=== PATIENT | female | born 1945 | race Caucasian/White ===

== ENCOUNTER 2017-06-08 13:29 | Observation (INO) | payer MEDICARE ==
[~2017-06-08] VITALS: Ht 160 cm; Wt 75.0 kg
[2017-06-08 13:32] VITALS: BP 134/65; PULSE 100; RESP 16; TEMP 98; O2SAT 96
--- NOTE | 2017-06-08 14:23 | RADRPT ---
EXAM DATE/TIME: 06/08/2017 14:04 [facility] COMPARISON: No previous studies available for comparison. INDICATIONS : Weakness, dizziness, unsteady gait, tired, since multiple botox injections last week. MEDICAL HISTORY : None. SURGICAL HISTORY : Multiple botox injections ENCOUNTER: Initial ACUITY: 1 week PAIN SCORE: 0/10 LOCATION: Bilateral chest FINDINGS: A single view of the chest demonstrates the lungs to be symmetrically aerated without evidence of mas s, infiltrate or effusion. Moderate size hiatal hernia. The cardiomediastinal contours are unremarka ble. Osseous structures are intact. CONCLUSION: No acute disease. Hiatal hernia. Ramu Pearson MD on June 08, 2017 at 14:20 Board Certified Radiologist. This report was verified electronically.
--- NOTE | 2017-06-08 14:43 | RADRPT ---
EXAM DATE/TIME: 06/08/2017 14:05 [facility] COMPARISON: No previous studies available for comparison. INDICATIONS : Lethargic,right side weakness,unsteady gait for two weeks. RADIATION DOSE: 31.15 CTDIvol (mGy) MEDICAL HISTORY : None SURGICAL HISTORY : None. ENCOUNTER: Initial ACUITY: 2 weeks PAIN SCALE: 3/10 LOCATION: cranial TECHNIQUE: Multiple contiguous axial images were obtained of the head. Using automated exposure control and adj ustment of the mA and/or kV according to patient size, radiation dose was kept as low as reasonably a chievable to obtain optimal diagnostic quality images. DICOM format image data is available electro nically for review and comparison. FINDINGS: CEREBRUM: Lacunar infarct right caudate head and periventricular white matter changes. The ventricles are john l for age. Old left basal ganglia lacunar infarct. No evidence of midline shift, mass lesion, hemorrh age or acute infarction. No extra-axial fluid collections are seen. POSTERIOR FOSSA: The cerebellum and brainstem are intact. The 4th ventricle is midline. The cerebellopontine angle i s unremarkable. EXTRACRANIAL: The visualized portion of the orbits is intact. SKULL: The calvaria is intact. No evidence of skull fracture. CONCLUSION: 1. Old appearing bilateral basal ganglia lacunar infarcts, although the left basal ganglia lacunar in farct could be subacute. If concern for acute infarct and MRI may be warranted. 2. Nonspecific white matter changes. Ramu Pearson MD on June 08, 2017 at 14:36 Board Certified Radiologist. This report was verified electronically.
--- NOTE | 2017-06-08 15:11 | PD ---
HPI Chief Complaint: General Weakness Time Seen by Provider: 15:10 Travel History International Travel<30 days: No Contact w/Intl Traveler<30days: No Traveled to known affect area: No Allergies-Medications (Allergen,Severity, Reaction): Coded Allergies: No Known Allergies (Unverified , 06/08/17) Data Data Last Documented VS Vital Signs Date Time Temp Pulse Resp B/P (MAP) Pulse Ox O2 Delivery O2 Flow Rate FiO2 06/08/17 13:32 98.0 100 16 134/65 (88) 96 Orders Orders Electrocardiogram (06/08/17 13:45) Complete Blood Count With Diff (06/08/17 13:45) Comprehensive Metabolic Panel (06/08/17 13:45) Magnesium (Mg) (06/08/17 13:45) B-Type Natriuretic Peptide (06/08/17 13:45) Ckmb (Isoenzyme) Profile (06/08/17 13:45) Troponin I (06/08/17 13:45) Act Partial Throm Time (Ptt) (06/08/17 13:45) Prothrombin Time / Inr (Pt) (06/08/17 13:45) Urinalysis - C+S If Indicated (06/08/17 13:45) Chest, Single Ap (06/08/17 13:45) Ct Brain W/O Iv Contrast(Rout) (06/08/17 13:45) Reilly Zavaleta MD Jun 08, 2017 15:11
[2017-06-08 15:32] VITALS: BP 177/73; PULSE 83; RESP 15; O2SAT 97
--- NOTE | 2017-06-08 15:53 | PD ---
HPI Chief Complaint: General Weakness Time Seen by Provider: 15:47 Travel History International Travel<30 days: No Contact w/Intl Traveler<30days: No Traveled to known affect area: No History of Present Illness HPI 72-year-old female that presents to the ED for evaluation of multiple complaints. Per patient and family member the main concern is the patient has been more lethargic than usual. She is sleeping longer which is unusual for her. She's also been having confusion and episodes of slurred speech with no obvious etiology. She does have a significant history of dystonia and gets Botox injections. She last had one about a month ago and symptoms started 2 weeks afterwards. She's never had similar symptoms like this before. Per the confusion and the dysarthria is more significant than before and when asked if she ever had this before he states that he does not appear to be so. She has been weak before but not like this. She does state that she takes blood thinners. She has a history of high blood pressure. She denies any history of CVA or ACS on herself. She states compliant with her medications. She states that she is from out of town and is visiting here for the next couple of weeks. She has no PCP in the area. She denies any pain. Her dystonia usually affects her face as well as her right arm. Per the weakness and lethargy appears to have worsened to the point where she follows sleeping when she is eating. No recent injury or head injury. [facility] Social History Alcohol Use: No Tobacco Use: No Substance Use: No Allergies-Medications (Allergen,Severity, Reaction): Coded Allergies: No Known Allergies (Unverified , 06/08/17) Reported Meds & Prescriptions Reported Meds & Active Scripts Active Reported Primidone 50 Mg Tab 300 Mg PO DAILY IN THE PM Omeprazole 20 Mg Tab 20 Mg PO BID Effexor (Venlafaxine HCl) 75 Mg Tab 75 Mg PO TID Klonopin (Clonazepam) 1 Mg Tab 1 Mg PO HS Wellbutrin Xl 24 HR (Bupropion HCl) 150 Mg Tab 150 Mg PO DAILY Baclofen 10 Mg Tab 10 Mg PO Q8HR [Easy Fe 200MG] 200 Mg PO DAILY Vesicare (Solifenacin) 10 Mg Tab 10 Mg PO DAILY Cipro (Ciprofloxacin HCl) 500 Mg Tab 500 Mg PO BID 5 Days Review of Systems Except as stated in HPI: all other systems reviewed are Neg Physical Exam Narrative GENERAL: SKIN: Warm and dry. HEAD: Atraumatic. Normocephalic. EYES: Pupils equal and round 4 mm reactive to light and accomodation. No scleral icterus. No injection or drainage. EOM intact bilaterally. ENT: No nasal bleeding or discharge. Mucous membranes pink and moist. Tongue is midline. No uvula deviation. NECK: Trachea midline. No JVD. CARDIOVASCULAR: Regular rate and rhythm. No murmurs, S3, S4. RESPIRATORY: No accessory muscle use. Clear to auscultation. Breath sounds equal bilaterally. GASTROINTESTINAL: Abdomen soft, non-tender, nondistended. Hepatic and splenic margins not palpable. MUSCULOSKELETAL: Extremities without clubbing, cyanosis, or edema. No obvious deformities. Full range of motion of the upper and lower extremities bilaterally. 2+ pulses bilaterally. NEUROLOGICAL: Awake and alert. No obvious cranial nerve deficits. Motor grossly within normal limits. Five out of 5 muscle strength in the arms and legs. Normal speech. Patient has an obvious tremor to the right hand as well as to the face that is chronic. PSYCHIATRIC: Appropriate mood and affect; insight and judgment normal. Data Data Last Documented VS Vital Signs Date Time Temp Pulse Resp B/P (MAP) Pulse Ox O2 Delivery O2 Flow Rate FiO2 06/08/17 15:32 83 15 177/73 (107) 97 Room Air 06/08/17 13:32 98.0 Orders Orders Complete Blood Count With Diff (06/08/17 13:45) Comprehensive Metabolic Panel (06/08/17 13:45) Magnesium (Mg) (06/08/17 13:45) B-Type Natriuretic Peptide (06/08/17 13:45) Ckmb (Isoenzyme) Profile (06/08/17 13:45) Troponin I (06/08/17 13:45) Act Partial Throm Time (Ptt) (06/08/17 13:45) Prothrombin Time / Inr (Pt) (06/08/17 13:45) Urinalysis - C+S If Indicated (06/08/17 13:45) Chest, Single Ap (06/08/17 13:45) Ct Brain W/O Iv Contrast(Rout) (06/08/17 13:45) Mri Brain W/O Contrast (06/08/17 ) Admit Order (Ed Use Only) (06/08/17 17:05) Labs Laboratory Tests Test 06/08/17 15:40 White Blood Count 7.5 TH/MM3 Red Blood Count 3.99 MIL/MM3 Hemoglobin 12.2 GM/DL Hematocrit 36.7 % Mean Corpuscular Volume 92.0 FL Mean Corpuscular Hemoglobin 30.6 PG Mean Corpuscular Hemoglobin Concent 33.3 % Red Cell Distribution Width 15.3 % Platelet Count 232 TH/MM3 Mean Platelet Volume 7.8 FL Neutrophils (%) (Auto) 68.4 % Lymphocytes (%) (Auto) 23.2 % Monocytes (%) (Auto) 6.9 % Eosinophils (%) (Auto) 1.2 % Basophils (%) (Auto) 0.3 % Neutrophils # (Auto) 5.1 TH/MM3 Lymphocytes # (Auto) 1.7 TH/MM3 Monocytes # (Auto) 0.5 TH/MM3 Eosinophils # (Auto) 0.1 TH/MM3 Basophils # (Auto) 0.0 TH/MM3 CBC Comment DIFF FINAL Differential Comment Prothrombin Time 10.0 SEC Prothromb Time International Ratio 0.9 RATIO Activated Partial Thromboplast Time 24.5 SEC Blood Urea Nitrogen 6 MG/DL Creatinine 0.66 MG/DL Random Glucose 105 MG/DL Total Protein 7.1 GM/DL Albumin 3.8 GM/DL Calcium Level 8.6 MG/DL Magnesium Level 2.2 MG/DL Alkaline Phosphatase 91 U/L Aspartate Amino Transf (AST/SGOT) 20 U/L Alanine Aminotransferase (ALT/SGPT) 17 U/L Total Bilirubin 0.3 MG/DL Sodium Level 136 MEQ/L Potassium Level 3.3 MEQ/L Chloride Level 98 MEQ/L Carbon Dioxide Level 28.8 MEQ/L Anion Gap 9 MEQ/L Estimat Glomerular Filtration Rate 88 ML/MIN Total Creatine Kinase 71 U/L Troponin I LESS THAN 0.02 NG/ML MDM Medical Decision Making Medical Screen Exam Complete: Yes Emergency Medical Condition: Yes Medical Record Reviewed: Yes Interpretation(s) CBC & BMP Diagram 06/08/17 15:40 Total Protein 7.1, Albumin 3.8, Calcium Level 8.6, Magnesium Level 2.2, Alkaline Phosphatase 91, Aspartate Amino Transf (AST/SGOT) 20, Alanine Aminotransferase (ALT/SGPT) 17, Total Bilirubin 0.[address] 06/08/17 8745 Signed Impressions: Service Date/Time: Thursday, June 08, 2017 14:05 - CONCLUSION: 1. Old appearing bilateral basal ganglia lacunar infarcts, although the left basal ganglia lacunar infarct could be subacute. If concern for acute infarct and MRI may be warranted. 2. Nonspecific white matter changes. Ramu Pearson MD Chest X-Ray 06/08/17 1345 Signed Impressions: Service Date/Time: Thursday, June 08, 2017 14:04 - CONCLUSION: No acute disease. Hiatal hernia. Ramu Pearson MD Differential Diagnosis TIA versus CVA versus dystonia versus weakness versus tremor versus UTI versus sepsis Narrative Course 72-year-old female that presents to the ED for evaluation of dysarthria, confusion, weakness for 2 weeks. Patient was properly examined and was found to have signs and symptoms concerning for possible TIA versus CVA. CT and chest x-ray were ordered intravenously is and CT show possible subacute lacunar infarct. This was discussed in my attending who agrees with plan. As patient has had symptoms for 2 weeks before likely this is subacute. We'll wait for labs as well as MRI was ordered. Patient will be admitted to the medical team for further evaluation per my attending Dr. Zavaleta. Labs were essentially unremarkable. Case discussed with Dr. Gimenez who agrees to admission. Diagnosis Primary Impression: CVA (cerebral vascular accident) Qualified Codes: I63.9 - Cerebral infarction, unspecified Admitting Information Admitting Physician Requests: Phil Helton Jun 08, 2017 15:53
[2017-06-08] MEDS ORDERED: CIPR-9 PO (16:24)
[2017-06-08] MEDS ORDERED: VENL75TA PO (16:24)
[2017-06-08] MEDS ORDERED: PRIM50TA5 PO (16:24)
[2017-06-08] MEDS ORDERED: VESI10TA2 PO (16:24)
[2017-06-08] MEDS ORDERED: CLON1 PO (16:24)
[2017-06-08] MEDS ORDERED: BUPR150XL PO (16:24)
[2017-06-08] MEDS ORDERED: OMEP20TA93 PO (16:24)
[2017-06-08] MEDS ORDERED: [UNRECOGNIZED DRUG - OTHER] PO (16:24)
[2017-06-08] MEDS ORDERED: BACL10TA PO (16:24)
[2017-06-08 16:27] LABS: AUTOMATED NEUTROPHIL # 5.1 TH/MM3 (1.8-7.7); BASOPHIL % 0.3 % (0.0-2.0); EOSINOPHIL # 0.1 TH/MM3 (0-0.4); EOSINOPHIL % 1.2 % (0.0-4.0); HEMATOCRIT 36.7 % (35.0-46.0); HEMO FLAGS DIFF FINAL; LYMPH % 23.2 % (9.0-44.0); LYMPHOCYTE # 1.7 TH/MM3 (1.0-4.8); MEAN CORPUSCULAR HEMOGLOBIN 30.6 PG (27.0-34.0); MEAN CORPUSCULAR HGB CONC 33.3 % (32.0-36.0); MONO % 6.9 % (0.0-8.0); NEUT % 68.4 % (16.0-70.0); PLATELET COUNT 232 TH/MM3 (150-450); RED BLOOD COUNT 3.99 MIL/MM3 (4.00-5.30); RED CELL DISTRIBUTION WIDTH 15.3 % (11.6-17.2); WHITE BLOOD COUNT 7.5 TH/MM3 (4.0-11.0)
[2017-06-08 16:40] LABS: APTT (PATIENT) 24.5 SEC (24.3-30.1); INTERNATIONAL NORMALIZED RATIO 0.9 RATIO
[2017-06-08 16:45] LABS: ANION GAP 9 MEQ/L (5-15); AST (GOT) 20 U/L (15-37); BICARBONATE 28.8 MEQ/L (21.0-32.0); BLOOD UREA NITROGEN 6 MG/DL (7-18); CHLORIDE 98 MEQ/L (98-107); GLOMERULAR FILTRATION RATE 88 ML/MIN (>89); MAGNESIUM 2.2 MG/DL (1.5-2.5); POTASSIUM 3.3 MEQ/L (3.5-5.1); SODIUM (NA) 136 MEQ/L (136-145)
[2017-06-08 16:47] LABS: ALT (GPT) 17 U/L (10-53)
[2017-06-08 16:51] LABS: ALKALINE PHOSPHATASE 91 U/L (45-117); TOTAL BILIRUBIN ADULT 0.3 MG/DL (0.2-1.0)
[2017-06-08 16:55] LABS: CREATINE KINASE 71 U/L (26-192)
[2017-06-08] MEDS ORDERED: DEXTROSE 50% IN WATER 50 ML VIAL(D50) IV PUSH PRN (17:15)
[2017-06-08] MEDS ORDERED: SODIUM CHLORIDE 0.9% FLUSH 10 ML FLUSH IV FLUSH PRN (17:15)
[2017-06-08] MEDS ORDERED: GLUCAGON 1 MG/ML VIAL OTHER PRN (17:15)
--- NOTE | 2017-06-08 17:54 | RADRPT ---
EXAM DATE/TIME: 06/08/2017 17:14 [facility] COMPARISON: CT BRAIN W/O CONTRAST, June 08, 2017, 14:05. INDICATIONS : Stroke. MEDICAL HISTORY : None. SURGICAL HISTORY : Tonsillectomy. Hip replacement. ENCOUNTER: Subsequent ACUITY: 2 weeks PAIN SCORE: 3/10 LOCATION: cranial TECHNIQUE: Multiplanar, multisequence MRI of the brain was performed without contrast. FINDINGS: CEREBRUM: The ventricles are normal for age. Old lacunar type infarct in the anterior right ma radiata. Po ssible punctate lacunar type infarct versus prominent perivascular space in the left basal ganglia. N o evidence of midline shift, mass lesion, hemorrhage or acute infarction. No extraaxial fluid collec tions are seen. The pituitary gland and suprasellar cistern are normal in configuration. WHITE MATTER: Minimal periventricular small vessel ischemic demyelination. POSTERIOR FOSSA: The cerebellum and brainstem are intact. The 4th ventricle is midline. The cerebellopontine angle is unremarkable. The cerebellar tonsils are normal in position. DIFFUSION IMAGING: No focal areas of restricted diffusion are seen. No evidence of acute infarction. EXTRACRANIAL: The visualized portions of the orbits and paranasal sinuses are unremarkable. CONCLUSION: 1. Old lacunar type infarct in the anterior right ma radiata with possible punctate lacunar type infarct versus perivascular space in the left basal ganglia. 2. Minimal periventricular small vessel ischemic demyelination. 3. Nothing acute. Too Villarreal MD on June 08, 2017 at 17:48 Board Certified Radiologist. This report was verified electronically.
[2017-06-08 18:51] VITALS: BP 124/88; PULSE 74; RESP 22; TEMP 98.3; O2SAT 98
--- NOTE | 2017-06-08 19:41 | HHI.HP ---
[facility] Unknown Admission Diagnosis subactue CVA, aphasia Diagnoses: Travel History International Travel<30 Days: No Contact w/Intl Traveler <30 Da: No Traveled to Known Affected Are: No History of Present Illness 72-year-old female with a past medical history significant for dystonia for which she receives Botox injections, essential tremor, hypertension, hyperlipidemia and obstructive sleep apnea presents to the emergency department with a 3-4 week history of progressive weakness and fatigue with accompanying slurred speech and confusion that waxes and wanes. Per the patient's , the patient's speech has been abnormal and progressively worsening. She also is intermittently confused and does not remember recent conversations. These are all new symptoms for her. Additionally, the patient has been extremely fatigued not wanting to leave her chair during the day. She is normally a very active person. The patient's states that he is afraid to let her drive because of her confusion and weakness. CT of the head showed possible subacute left basal ganglia lacunar infarct. MRI was significant for an old lacunar infarct. Lab values remarkable only for a potassium of 3.3. Remainder of CBC/ CMP within normal limits.. Patient complains of a headache at this time. Denies chest pain/shortness of breath. The patient and her are visiting from [place]. She has no history of a CVA/TIA. Of note, the patient states that she has a history of atrial fibrillation and states she takes a combined anticoagulant medication. She is unclear of the name of this medication and it does not appear on her medication reconciliation. Review of Systems Denies fever or chills Denies blurry vision, otorrhea, rhinorrhea Denies sore throat and cough No chest pain, palpitations, shortness of breath No abdominal pain Denies constipation/diarrhea/nausea/vomiting Positive slurred speech/weakness/fatigue No rashes Past Family Social History Past Medical History Dystonia Obstructive sleep apnea Hyperlipidemia Hypertension Essential tremor Atrial fibrillation Past Surgical History Bilateral hip replacement Hysterectomy Tonsillectomy Reported Medications Reported Meds & Active Scripts Active Reported Primidone 50 Mg Tab 300 Mg PO DAILY IN THE PM Omeprazole 20 Mg Tab 20 Mg PO BID Effexor (Venlafaxine HCl) 75 Mg Tab 75 Mg PO TID Klonopin (Clonazepam) 1 Mg Tab 1 Mg PO HS Wellbutrin Xl 24 HR (Bupropion HCl) 150 Mg Tab 150 Mg PO DAILY Baclofen 10 Mg Tab 10 Mg PO Q8HR [Easy Fe 200MG] 200 Mg PO DAILY Vesicare (Solifenacin) 10 Mg Tab 10 Mg PO DAILY Cipro (Ciprofloxacin HCl) 500 Mg Tab 500 Mg PO BID 5 Days Allergies: Coded Allergies: No Known Allergies (Unverified , 06/08/17) Family History Father of an MT at age 80. Mother with Alzheimer's. Social History Denies tobacco, alcohol and illicit drugs. Physical Exam Vital Signs Vital Signs Date Time Temp Pulse Resp B/P (MAP) Pulse Ox O2 Delivery O2 Flow Rate FiO2 06/08/17 18:51 98.3 74 22 124/88 (100) 98 06/08/17 17:48 06/08/17 15:32 83 15 177/73 (107) 97 Room Air 06/08/17 13:32 98.0 100 16 134/65 (88) 96 Physical Exam GENERAL: female lying in bed SKIN: No rashes, ecchymoses or lesions. Cool and dry. HEAD: Atraumatic. Normocephalic. No temporal or scalp tenderness. EYES: Pupils equal round and reactive. Extraocular motions intact. No scleral icterus. No injection or drainage. ENT: Nose without bleeding, purulent drainage or septal hematoma. Throat without erythema, tonsillar hypertrophy or exudate. Uvula midline. Airway patent. NECK: Trachea midline. No JVD or lymphadenopathy. Supple, nontender, no meningeal signs. CARDIOVASCULAR: Regular rate and rhythm without murmurs, gallops, or rubs. RESPIRATORY: Clear to auscultation. Breath sounds equal bilaterally. No wheezes , rales, or rhonchi. GASTROINTESTINAL: Abdomen soft, non-tender, nondistended. No hepato-splenomegaly , or palpable masses. No guarding. MUSCULOSKELETAL: Extremities without clubbing, cyanosis, or edema. No joint tenderness, effusion, or edema noted. NEUROLOGICAL: Awake and alert. Cranial nerves II through XII intact. Right film painter strength 3-/5. Weak smile although patient states this is secondary to her Botox injections. Mildly slurred speech. No dysarthria. Remainder of strength 5/5 throughout. Laboratory Laboratory Tests Test 06/08/17 15:40 White Blood Count 7.5 Red Blood Count 3.99 Hemoglobin 12.2 Hematocrit 36.7 Mean Corpuscular Volume 92.0 Mean Corpuscular Hemoglobin 30.6 Mean Corpuscular Hemoglobin Concent 33.3 Red Cell Distribution Width 15.3 Platelet Count 232 Mean Platelet Volume 7.8 Neutrophils (%) (Auto) 68.4 Lymphocytes (%) (Auto) 23.2 Monocytes (%) (Auto) 6.9 Eosinophils (%) (Auto) 1.2 Basophils (%) (Auto) 0.3 Neutrophils # (Auto) 5.1 Lymphocytes # (Auto) 1.7 Monocytes # (Auto) 0.5 Eosinophils # (Auto) 0.1 Basophils # (Auto) 0.0 CBC Comment DIFF FINAL Differential Comment Prothrombin Time 10.0 Prothromb Time International Ratio 0.9 Activated Partial Thromboplast Time 24.5 Blood Urea Nitrogen 6 Creatinine 0.66 Random Glucose 105 Total Protein 7.1 Albumin 3.8 Calcium Level 8.6 Magnesium Level 2.2 Alkaline Phosphatase 91 Aspartate Amino Transf (AST/SGOT) 20 Alanine Aminotransferase (ALT/SGPT) 17 Total Bilirubin 0.3 Sodium Level 136 Potassium Level 3.3 Chloride Level 98 Carbon Dioxide Level 28.8 Anion Gap 9 Estimat Glomerular Filtration Rate 88 Total Creatine Kinase 71 Troponin I LESS THAN 0.02 Result Diagram: 06/08/17 1540 06/08/17 1540 Caprini VTE Risk Assessment Caprini VTE Risk Assessment: Mod/High Risk (score >= 2) Caprini Risk Assessment Model Point Value = 1 Point Value = 2 Point Value = 3 Point Value = 5 Age 41-60 Minor surgery BMI > 25 kg/m2 Swollen legs Varicose veins or History of unexplained or recurrent spontaneous Oral contraceptives or hormone replacement Sepsis (< 1 month) Serious lung disease, including pneumonia (< 1 month) Abnormal pulmonary function Acute myocardial infarction Congestive heart failure (< 1 month) History of inflammatory bowel disease Medical patient at bed rest Age 61-74 Arthroscopic surgery Major open surgery (> 45 min) Laparoscopic surgery (> 45 min) Malignancy Confined to bed (> 72 hours) Immobilizing plaster cast Central venous access Age >= 75 History of VTE Family history of VTE Factor V Leiden Prothrombin [id number] Lupus anticoagulant Anticardiolipin antibodies Elevated serum homocysteine Heparin-induced thrombocytopenia Other congenital or acquired thrombophilia Stroke (< 1 month) Elective arthroplasty Hip, pelvis, or leg fracture Acute spinal cord injury (< 1 month) Prophylaxis Regimen Total Risk Factor Score Risk Level Prophylaxis Regimen 0-1 Low Early ambulation 2 Moderate Order ONE of the following: *Sequential Compression Device (SCD) *Heparin 5000 units SQ BID 3-4 Higher Order ONE of the following medications: *Heparin 5000 units SQ TID *Enoxaparin/Lovenox 40 mg SQ daily (WT < 150 kg, CrCl > 30 mL/min) *Enoxaparin/Lovenox 30 mg SQ daily (WT < 150 kg, CrCl > 10-29 mL/min) *Enoxaparin/Lovenox 30 mg SQ BID (WT < 150 kg, CrCl > 30 mL/min) AND/OR *Sequential Compression Device (SCD) 5 or more Highest Order ONE of the following medications: *Heparin 5000 units SQ TID (Preferred with Epidurals) *Enoxaparin/Lovenox 40 mg SQ daily (WT < 150 kg, CrCl > 30 mL/min) *Enoxaparin/Lovenox 30 mg SQ daily (WT < 150 kg, CrCl > 10-29 mL/min) *Enoxaparin/Lovenox 30 mg SQ BID (WT < 150 kg, CrCl > 30 mL/min) AND *Sequential Compression Device (SCD) Assessment and Plan Assessment and Plan 72-year-old female with a past medical history significant for dystonia, hyperlipidemia, hypertension and essential tremor presents to the emergency department with a 3-4 week history of increasing fatigue/weakness, progressively worsening slurred speech and intermittent confusion. MRI of the brain significant for old lacunar infarct in the anterior right ma radiata. 1. CVA/TIA Complete neurology workup pending as patient remains symptomatic Neurology consulted, appreciate assistance Carotid ultrasound, echo, lipid profile and A1c pending Physical therapy 2. Dystonia Patient completed Botox injections approximately one month ago with good response 3. Essential tremor Continue home primidone 4. Per patient, past medical history significant for hypertension, hyperlipidemia and A. fib Permissive hypertension Patient is not on any anti-hypertensives or cholesterol medication per her medication reconciliation She is unclear if her medications are correct because she did not bring them with her Patient states she is on a combined blood thinner medication however does not remember the name Patient's is going to bring in her medications for further medication reconciliation FEN Nothing by mouth Gentle hydration with IV fluids Electrolytes within normal limits; continue to monitor and replete when necessary Heparin Gladis Guzman MD Jun 08, 2017 19:41
[2017-06-08 20:40] VITALS: BP 128/60; PULSE 75; RESP 18; TEMP 98.1; O2SAT 98
--- NOTE | 2017-06-08 20:54 | RADRPT ---
EXAM DATE/TIME: 06/08/2017 19:01 [facility] COMPARISON: No previous studies available for comparison. INDICATIONS : Cerebrovascular accident. MEDICAL HISTORY : Stroke. Hypercholesterolemia. Dystonia. Sleep apnea. Depression. SURGICAL HISTORY : Tonsillectomy. Hysterectomy. Bilateral hip replacement. ENCOUNTER: Initial ACUITY: 1 day PAIN SCORE: 2/10 LOCATION: Bilateral neck PEAK SYSTOLIC VELOCITIES (cm/sec): ICA/CCA RATIO: Right: 1.4 Left: 1.0 ICA: Right: 112.8 Left: 90.1 CCA: Right: 78.9 Left: 92.5 ECA: Right: 90.2 Left: 88.6 VERTEBRAL: Right: 53.7 antegrade Left: 40.6 antegrade Elevated flow velocities and ICA/CCA ratios have been found to correlate with increased degrees of vessel stenosis, calculated as percentage of diameter relative to a normal segment of distal ICA/CCA FINDINGS: RIGHT CAROTID: No significant stenosis is visualized. There is minimal atherosclerotic disease in the carotid bulb. The waveforms are within normal limits. LEFT CAROTID: No significant stenosis is visualized. There is minimal atherosclerotic disease in the carotid bulb. The waveforms are within normal limits. VERTEBRAL ARTERIES: Antegrade flow is seen in both vertebral arteries. MISCELLANEOUS: None. CONCLUSION: 1. Minimal atherosclerotic disease bilaterally. No significant stenosis is identified within either i nternal carotid artery (less than 50% stenosis). 2. There is good flow within both vertebral arteries. León Ramirez MD on June 08, 2017 at 20:50 Board Certified Radiologist. This report was verified electronically.
[2017-06-08] MEDS ORDERED: NON-FORMULARY DRUG (Omeprazole 20 MG) PO SCH (21:00)
[2017-06-08] MEDS: SODIUM CHLOR 0.9% 1000 ML INJ 1,000 ML IV SCH (21:41)
[2017-06-08] MEDS: POTASSIUM CHLOR 10 MEQ PREMIX 100 ML IV SCH ×2 (21:41→22:47)
[2017-06-08] MEDS: PANTOPRAZOLE SOD 20 MG DELAYED RELEASE TAB PO SCH (21:42)
[2017-06-08] MEDS: PRIMIDONE 50 MG TAB PO SCH (21:42)
[2017-06-08] MEDS: SODIUM CHLORIDE 0.9% FLUSH 10 ML FLUSH IV FLUSH SCH (21:42)
[2017-06-08] MEDS: HEPARIN SODIUM - SQ 10,000 UNITS/ML VIAL SQ SCH (21:43)
[2017-06-08 22:00] VITALS: O2SAT 97
[2017-06-09] VITALS (12 sets, daily range): BP systolic 121–145; BP diastolic 72–84; PULSE 73–113; RESP 16–18; TEMP 97.9–99.2; O2SAT 93–98
[2017-06-09] MEDS: POTASSIUM CHLOR 10 MEQ PREMIX 100 ML IV SCH (00:05)
[2017-06-09] MEDS: HEPARIN SODIUM - SQ 10,000 UNITS/ML VIAL SQ SCH ×3 (06:21→21:28)
[2017-06-09 08:22] LABS: HDL CHOLESTEROL 71.5 MG/DL (40.0-60.0)
[2017-06-09] MEDS: SODIUM CHLORIDE 0.9% FLUSH 10 ML FLUSH IV FLUSH SCH ×2 (08:53→21:00)
[2017-06-09] MEDS: VENLAFAXINE HCL XR 75 MG CAP PO SCH (08:58)
[2017-06-09] MEDS: PANTOPRAZOLE SOD 20 MG DELAYED RELEASE TAB PO SCH ×2 (08:58→21:28)
[2017-06-09] MEDS: buPROPion HCL 150 MG SUSTAINED RELEASE TAB PO SCH (08:58)
[2017-06-09] MEDS ORDERED: buPROPion HCL 150 MG EXTENDED RELEASE TAB PO SCH (09:00)
[2017-06-09] MEDS ORDERED: NON-FORMULARY DRUG (Venlafaxine (Effexor) 75 MG) PO SCH (09:00)
[2017-06-09 12:04] LABS: BICARBONATE 27.7 MEQ/L (21.0-32.0); POTASSIUM 3.3 MEQ/L (3.5-5.1)
[2017-06-09] MEDS: SODIUM CHLOR 0.9% 1000 ML INJ 1,000 ML IV SCH (15:36)
--- NOTE | 2017-06-09 16:06 | PD.CONS ---
History of Present Illness Service Neurology Consult Requested By medical Reason for Consult stroke Primary Care Physician Unknown History of Present Illness 72-year-old female admitted for lethargy. ongoing x 1-2 weeks per spouse. they are down for 3 weeks. She usually goes to [facility] for her medical care. hx of depression, insomnia, anxiety, dystonia. clonazepam was increased prior to her arrival to [facility]. currently, she denies any billings[place], neck pain, vision loss, focal weakness, sensory symptoms. any fever or sick contacts. PFSH Social History Alcohol Use: No Tobacco Use: No Substance Use: No Allergies-Medications (Allergen,Severity, Reaction): Coded Allergies: No Known Allergies (Unverified , 06/08/17) Reported Meds & Prescriptions Reported Meds & Active Scripts Active Reported Primidone 50 Mg Tab 300 Mg PO DAILY IN THE PM Omeprazole 20 Mg Tab 20 Mg PO BID Effexor (Venlafaxine HCl) 75 Mg Tab 75 Mg PO TID Klonopin (Clonazepam) 1 Mg Tab 1 Mg PO HS Wellbutrin Xl 24 HR (Bupropion HCl) 150 Mg Tab 150 Mg PO DAILY Baclofen 10 Mg Tab 10 Mg PO Q8HR [Easy Fe 200MG] 200 Mg PO DAILY Vesicare (Solifenacin) 10 Mg Tab 10 Mg PO DAILY Cipro (Ciprofloxacin HCl) 500 Mg Tab 500 Mg PO BID 5 Days Review of Systems Except as stated in HPI: all other systems reviewed are Neg Review of Systems All other ROS: ROS reviewed as documented in chart Past Family Social History Allergies: Coded Allergies: No Known Allergies (Unverified , 06/08/17) Active Ordered Medications Current Medications Medications (Trade) Dose Ordered Sig/Danie Route Start Time Stop Time Status Last Admin (NS Flush) 2 ml BID IV FLUSH 06/08/17 21:00 06/08/17 21:42 (NS Flush) 2 ml UNSCH PRN IV FLUSH 06/08/17 17:15 (D50w (Vial) Inj) 50 ml UNSCH PRN IV PUSH 06/08/17 17:15 (Glucagon Inj) 1 mg UNSCH PRN OTHER 06/08/17 17:15 (Mysoline) 300 mg HS PO 06/08/17 21:00 06/08/17 21:42 Sodium Chloride 1,000 ml @ 70 mls/hr [id number] IV 06/08/17 20:00 06/09/17 15:36 (Heparin Inj) 5,000 units Q8HR SQ 06/08/17 22:00 06/09/17 15:36 (Protonix) 20 mg BID PO 06/08/17 21:00 06/09/17 08:58 (Wellbutrin Sr) 150 mg DAILY PO 06/09/17 09:00 06/09/17 08:58 (Effexor Xr) 225 mg DAILY PO 06/09/17 09:00 06/09/17 08:58 Exam I&O / VS Vital Signs Date Time Temp Pulse Resp B/P (MAP) Pulse Ox O2 Delivery O2 Flow Rate FiO2 06/09/17 11:58 98.5 88 16 121/74 (90) 96 06/09/17 10:17 95 21 06/09/17 08:18 97.9 79 18 126/73 (90) 97 06/09/17 05:20 75 06/09/17 02:57 77 06/09/17 02:26 98.0 76 18 121/82 (95) 98 06/08/17 22:00 97 06/08/17 20:40 98.1 75 18 128/60 (82) 98 06/08/17 18:51 98.3 74 22 124/88 (100) 98 06/08/17 17:48 General: Alert and Oriented, No acute distress Eye: EOMI Respiratory: Non-labored respirations Cardiology: Normal rate Musculoskeletal: ROM Neurologic: Alert, Oriented Psychiatric: Cooperative, Appropriate mood & affect Exam Comments sitting up in bed, sunglasses on due to mild photophobia (common for her) eomi, ou 3-2mm, lifted eyebrows, face sym, lopes to gravity 5/5 with mild rt ue dystonia , mild postural tremors, msr 1+, no clonus, planterflexor, no rigidity, no neck supple Review/Management Diagnosis/Plan: (1) Depression ICD Codes: F32.9 - Major depressive disorder, single episode, unspecified Status: Chronic Plan: lethargy may be related to recent increase of clonazepam; she is on multiple psychotropic medications with sedative effects her exam shows findings of her chronic neurologic illnesses mri brain- no acute stroke. 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 mild periventricular white matter dz recs reduce clonazepam, reduce baclofen intake. 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
[2017-06-09 17:04] LABS: HEMOGLOBIN A1a 1.2 %; HEMOGLOBIN A1b 2.1 %; HEMOGLOBIN Ao 83.3 %; HEMOGLOBIN P3 6.3 %
--- NOTE | 2017-06-09 17:08 | HHI.PR ---
Subjective Remarks Follow up for dystonia, generalized weakness, fatigue, slurred speech. Patient is currently resting in bed. is at bedside. She was brought to the hospital due to progressive weakness. No focal deficits. Currently, she denies any chest pain, SOB, fever, chills. Objective Vitals Vital Signs Date Time Temp Pulse Resp B/P (MAP) Pulse Ox O2 Delivery O2 Flow Rate FiO2 06/09/17 16:11 99.2 96 18 127/81 (96) 95 06/09/17 11:58 98.5 88 16 121/74 (90) 96 06/09/17 10:17 95 21 06/09/17 08:18 97.9 79 18 126/73 (90) 97 06/09/17 05:20 75 06/09/17 02:57 77 06/09/17 02:26 98.0 76 18 121/82 (95) 98 06/08/17 22:00 97 06/08/17 20:40 98.1 75 18 128/60 (82) 98 06/08/17 18:51 98.3 74 22 124/88 (100) 98 06/08/17 17:48 I/O 06/08/17 06/08/17 06/08/17 06/09/17 06/09/17 06/09/17 07:00 15:00 23:00 07:00 15:00 23:00 Intake Total 100 ml 200 ml Balance 100 ml 200 ml Intake IV Total 100 ml 200 ml # Voids 1 # Bowel Movements 1 Result Diagram: 06/08/17 1540 06/09/17 0600 Imaging Last Impressions Head CT 06/08/17 1345 Signed Impressions: Service Date/Time: Thursday, June 08, 2017 14:05 - CONCLUSION: 1. Old appearing bilateral basal ganglia lacunar infarcts, although the left basal ganglia lacunar infarct could be subacute. If concern for acute infarct and MRI may be warranted. 2. Nonspecific white matter changes. Ramu Pearson MD Chest X-Ray 06/08/17 1345 Signed Impressions: Service Date/Time: Thursday, June 08, 2017 14:04 - CONCLUSION: No acute disease. Hiatal hernia. Ramu Pearson MD Carotid Artery Ultrasound 06/08/17 0000 Signed Impressions: Service Date/Time: Thursday, June 08, 2017 19:01 - CONCLUSION: 1. Minimal atherosclerotic disease bilaterally. No significant stenosis is identified within either internal carotid artery (less than 50%% stenosis). 2. There is good flow within both vertebral arteries. León Ramirez MD Brain MRI 06/08/17 0000 Signed Impressions: Service Date/Time: Thursday, June 08, 2017 17:14 - CONCLUSION: 1. Old lacunar type infarct in the anterior right ma radiata with possible punctate lacunar type infarct versus perivascular space in the left basal ganglia. 2. Minimal periventricular small vessel ischemic demyelination. 3. Nothing acute. Too Villarreal MD Objective Remarks GENERAL: Alert, NAD. SKIN: Warm and dry. HEAD: Normocephalic. EYES: No scleral icterus. No injection or drainage. NECK: Supple, trachea midline. No JVD or lymphadenopathy. CARDIOVASCULAR: Regular rate and rhythm without murmurs, gallops, or rubs. RESPIRATORY: Breath sounds equal bilaterally. No accessory muscle use. GASTROINTESTINAL: Abdomen soft, non-tender, nondistended. MUSCULOSKELETAL: No cyanosis, or edema. Right upper extremity 4 out of 5, left upper extremity 5 out of 5, 5 out of 5 on lower extremities. BACK: Nontender without obvious deformity. No CVA tenderness. A/P Problem List: (1) Generalized weakness ICD Code: R53.1 - Weakness Assessment and Plan Ms. Lee is a pleasant 72-year-old female with a history of hypertension, obstructive sleep apnea, hyperlipidemia who was brought to the hospital due to 3 -4 week history of progressive weakness and fatigue. She also had some confusion and slurred speech. No focal deficits although patient has a history of dystonia. - Generalized weakness - Etiology unknown. Neurology was consulted. - Does not appear to be CVA. - We'll obtain vitamin B12, TSH - Physical therapy consulted. - Mild hypokalemia - We'll replace with oral potassium. - Essential tremor - continue primidone 300 mg daily at bedtime - Depression - continue bupropion and venlafaxine Full code. Ambulation. Gayle Holly DO Jun 09, 2017 5:08 pm
--- NOTE | 2017-06-09 18:33 | EKG ---
Date Performed: 06/08/2017 Time Performed: 16:36:27 PTAGE: 72 years EKG: Sinus rhythm NORMAL ECG NO PREVIOUS TRACING DOCTOR: Melony John Interpretating Date/Time 06/09/2017 18:32:41
--- NOTE | 2017-06-09 20:02 | HHI.PR ---
Subjective Remarks NOT SEEN Objective Vitals Vital Signs Date Time Temp Pulse Resp B/P (MAP) Pulse Ox O2 Delivery O2 Flow Rate FiO2 06/09/17 16:11 99.2 96 18 127/81 (96) 95 06/09/17 15:00 93 06/09/17 11:58 98.5 88 16 121/74 (90) 96 06/09/17 10:17 95 21 06/09/17 08:18 97.9 79 18 126/73 (90) 97 06/09/17 08:00 72 06/09/17 05:20 75 06/09/17 02:57 77 06/09/17 02:26 98.0 76 18 121/82 (95) 98 06/08/17 22:00 97 06/08/17 20:40 98.1 75 18 128/60 (82) 98 I/O 06/08/17 06/08/17 06/08/17 06/09/17 06/09/17 06/09/17 07:00 15:00 23:00 07:00 15:00 23:00 Intake Total 100 ml 200 ml Balance 100 ml 200 ml Intake IV Total 100 ml 200 ml # Voids 1 # Bowel Movements 1 Result Diagram: 06/08/17 1540 06/09/17 0600 Imaging Last Impressions Head CT [id number]/08/171344 Signed Impressions: Service Date/Time: Thursday, June 08, 2017 14:05 - CONCLUSION: 1. Old appearing bilateral basal ganglia lacunar infarcts, although the left basal ganglia lacunar infarct could be subacute. If concern for acute infarct and MRI may be warranted. 2. Nonspecific white matter changes. Ramu Pearson MD Chest X-Ray [id number]/08/171344 Signed Impressions: Service Date/Time: Thursday, June 08, 2017 14:04 - CONCLUSION: No acute disease. Hiatal hernia. Ramu Pearson MD Carotid Artery Ultrasound 06/08/17 0000 Signed Impressions: Service Date/Time: Thursday, June 08, 2017 19:01 - CONCLUSION: 1. Minimal atherosclerotic disease bilaterally. No significant stenosis is identified within either internal carotid artery (less than 50%% stenosis). 2. There is good flow within both vertebral arteries. León Ramirez MD Brain MRI 06/08/17 0000 Signed Impressions: Service Date/Time: Thursday, June 08, 2017 17:14 - CONCLUSION: 1. Old lacunar type infarct in the anterior right ma radiata with possible punctate lacunar type infarct versus perivascular space in the left basal ganglia. 2. Minimal periventricular small vessel ischemic demyelination. 3. Nothing acute. Too Villarreal MD Objective Remarks GENERAL: Alert, NAD. SKIN: Warm and dry. HEAD: Normocephalic. EYES: No scleral icterus. No injection or drainage. NECK: Supple, trachea midline. No JVD or lymphadenopathy. CARDIOVASCULAR: Regular rate and rhythm without murmurs, gallops, or rubs. RESPIRATORY: Breath sounds equal bilaterally. No accessory muscle use. GASTROINTESTINAL: Abdomen soft, non-tender, nondistended. MUSCULOSKELETAL: No cyanosis, or edema. Right upper extremity 4 out of 5, left upper extremity 5 out of 5, 5 out of 5 on lower extremities. BACK: Nontender without obvious deformity. No CVA tenderness. Plan A/P Problem List: (1) Generalized weakness ICD Code: R53.1 - Weakness Assessment and Plan Ms. Lee is a pleasant 72-year-old female with a history of hypertension, obstructive sleep apnea, hyperlipidemia who was brought to the hospital due to 3 -4 week history of progressive weakness and fatigue. She also had some confusion and slurred speech. No focal deficits although patient has a history of dystonia. - Generalized weakness - Etiology unknown. Neurology was consulted. - Does not appear to be CVA. - We'll obtain vitamin B12, TSH - Physical therapy consulted. - Mild hypokalemia - We'll replace with oral potassium. - Essential tremor - continue primidone 300 mg daily at bedtime - Depression - continue bupropion and venlafaxine Full code. Ambulation. A/P Problem List: (1) Generalized weakness ICD Code: R53.1 - Weakness Aaron Beck MD Jun 09, 2017 20:02
[2017-06-09] MEDS: PRIMIDONE 50 MG TAB PO SCH (21:28)
[2017-06-09] MEDS ORDERED: ACETAMINOPHEN 325 MG TAB PO ONE (21:45)
[2017-06-10] VITALS (7 sets, daily range): BP systolic 133–156; BP diastolic 77–95; PULSE 89–99; RESP 20; TEMP 98.6–98.9; O2SAT 88–98
[2017-06-10] MEDS: SODIUM CHLOR 0.9% 1000 ML INJ 1,000 ML IV SCH ×2 (00:36→10:02)
[2017-06-10] MEDS: HEPARIN SODIUM - SQ 10,000 UNITS/ML VIAL SQ SCH ×2 (05:39→14:00)
--- NOTE | 2017-06-10 07:48 | HHI.PR ---
Review/Management Diagnosis/Plan: (1) Depression ICD Codes: F32.9 - Major depressive disorder, single episode, unspecified Status: Chronic Plan: lethargy may be related to recent increase of clonazepam; she is on multiple psychotropic medications with sedative effects her exam shows findings of her chronic neurologic illnesses mri brain- no acute stroke. 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 mild periventricular white matter dz recs neuro stable reduce clonazepam, reduce baclofen intake. she is to f/u with her md's at [place] who can review her meds ok to d/c from neurology (2) Dystonia ICD Codes: G24.9 - Dystonia, unspecified Status: Chronic (3) Blepharospasm ICD Codes: G24.5 - Blepharospasm Status: Chronic (4) Anxiety ICD Codes: F41.9 - Anxiety disorder, unspecified Status: Chronic (5) Essential tremor ICD Codes: G25.0 - Essential tremor Subjective Subjective Comments No acute events reported, "can i go home?" No headache No chest pain No dyspnea Active Medications Current Medications Medications (Trade) Dose Ordered Sig/Danie Route Start Time Stop Time Status Last Admin (NS Flush) 2 ml BID IV FLUSH 06/08/17 21:00 06/08/17 21:42 (NS Flush) 2 ml UNSCH PRN IV FLUSH 06/08/17 17:15 (D50w (Vial) Inj) 50 ml UNSCH PRN IV PUSH 06/08/17 17:15 (Glucagon Inj) 1 mg UNSCH PRN OTHER 06/08/17 17:15 (Mysoline) 300 mg HS PO 06/08/17 21:00 06/09/17 21:28 Sodium Chloride 1,000 ml @ 70 mls/hr [id number] IV 06/08/17 20:00 06/09/17 15:36 (Heparin Inj) 5,000 units Q8HR SQ 06/08/17 22:00 06/10/17 05:39 (Protonix) 20 mg BID PO 06/08/17 21:00 06/09/17 21:28 (Wellbutrin Sr) 150 mg DAILY PO 06/09/17 09:00 06/09/17 08:58 (Effexor Xr) 225 mg DAILY PO 06/09/17 09:00 06/09/17 08:58 (Ecotrin Ec) 81 mg DAILY PO 06/10/17 09:00 Allergies Allergies Coded Allergies No Known Allergies (Luldpmpfcw06/6/17) Review of Systems All other ROS: ROS reviewed as documented in chart Exam I&O / VS Vital Signs Date Time Temp Pulse Resp B/P (MAP) Pulse Ox O2 Delivery O2 Flow Rate FiO2 06/10/17 07:30 98.6 91 20 133/77 (95) 88 06/10/17 04:04 96 06/10/17 03:20 98.7 99 20 148/80 (102) 95 06/10/17 00:05 96 06/09/17 23:58 18 06/09/17 23:40 99.0 95 18 135/72 (93) 95 06/09/17 20:58 99.0 113 18 145/84 (104) 93 06/09/17 20:10 112 06/09/17 16:11 99.2 96 18 127/81 (96) 95 06/09/17 15:00 93 06/09/17 11:58 98.5 88 16 121/74 (90) 96 06/09/17 10:17 95 21 06/09/17 08:18 97.9 79 18 126/73 (90) 97 06/09/17 08:00 72 General: Alert and Oriented, No acute distress Eye: EOMI Respiratory: Non-labored respirations Cardiology: Normal rate Musculoskeletal: ROM Neurologic: Alert, Oriented Psychiatric: Cooperative, Appropriate mood & affect Exam Comments alert, ox 3, sunglasses on due to mild photophobia (usual for her) eomi, ou 3- 2mm, lifted eyebrows, face sym, lopes to gravity 5/5 with mild rt ue dystonia, mild postural tremors, msr 1+, no clonus, planterflexor, no rigidity, no neck supple Problem Qualifiers (1) Depression: Haim García MD Jun 10, 2017 07:48
[2017-06-10] MEDS ORDERED: POTASSIUM CHLORIDE 10 MEQ CONTROLLED RELEASE TAB PO ONE (08:00)
[2017-06-10] MEDS: SODIUM CHLORIDE 0.9% FLUSH 10 ML FLUSH IV FLUSH SCH (09:00)
[2017-06-10] MEDS ORDERED: ASPIRIN EC 81 MG TABEC PO SCH (09:00)
[2017-06-10] MEDS: VENLAFAXINE HCL XR 75 MG CAP PO SCH (10:00)
[2017-06-10] MEDS: PANTOPRAZOLE SOD 20 MG DELAYED RELEASE TAB PO SCH (10:00)
[2017-06-10] MEDS: buPROPion HCL 150 MG SUSTAINED RELEASE TAB PO SCH (10:00)
--- NOTE | 2017-06-10 11:13 | HHI.DCPOC ---
Discharge Care Plan Diagnosis: (1) Essential tremor (2) Anxiety (3) Generalized weakness (4) Dystonia Goals to Promote Your Health * To prevent worsening of your condition and complications * To maintain your health at the optimal level Directions to Meet Your Goals Take your medications as prescribed Follow your dietary instruction Follow activity as directed Keep your appointments as scheduled Take your immunizations and boosters as scheduled If your symptoms worsen call your PCP, if no PCP go to Urgent Care Center or Emergency Room Smoking is Dangerous to Your Health. Avoid second hand smoke Call the 24-hour hour crisis hotline for domestic abuse at [facility] Giles Jun 10, 2017 11:13
--- NOTE | 2017-06-10 11:20 | HHI.PR ---
Subjective Remarks Follow-up encephalopathy. Patient has no complaints and wants to go home. Discussed with RN and , decrease clonazepam dose to bedtime only. She can also stop baclofen. According to patient, recent medication changes involve increasing Klonopin to twice a day. Objective Vitals Vital Signs Date Time Temp Pulse Resp B/P (MAP) Pulse Ox O2 Delivery O2 Flow Rate FiO2 06/10/17 09:55 89 06/10/17 07:30 98.6 91 20 133/77 (95) 88 06/10/17 04:04 96 06/10/17 03:20 98.7 99 20 148/80 (102) 95 06/10/17 00:05 96 06/09/17 23:58 18 06/09/17 23:40 99.0 95 18 135/72 (93) 95 06/09/17 20:58 99.0 113 18 145/84 (104) 93 06/09/17 20:10 112 06/09/17 16:11 99.2 96 18 127/81 (96) 95 06/09/17 15:00 93 06/09/17 11:58 98.5 88 16 121/74 (90) 96 I/O 06/09/17 06/09/17 06/09/17 06/10/17 06/10/17 06/10/17 07:00 15:00 23:00 07:00 15:00 23:00 Intake Total 200 ml 240 ml Output Total 480 ml Balance 200 ml 240 ml -480 ml Intake Oral 240 ml IV Total 200 ml Output Urine Total 480 ml # Voids 1 2 # Bowel Movements 1 Result Diagram: 06/08/17 1540 06/09/17 0600 Imaging Last Impressions Head CT 06/08/171344 Signed Impressions: Service Date/Time: Thursday, June 08, 2017 14:05 - CONCLUSION: 1. Old appearing bilateral basal ganglia lacunar infarcts, although the left basal ganglia lacunar infarct could be subacute. If concern for acute infarct and MRI may be warranted. 2. Nonspecific white matter changes. Ramu Pearson MD Chest X-Ray 06/08/171344 Signed Impressions: Service Date/Time: Thursday, June 08, 2017 14:04 - CONCLUSION: No acute disease. Hiatal hernia. Ramu Pearson MD Carotid Artery Ultrasound 06/08/17 0000 Signed Impressions: Service Date/Time: Thursday, June 08, 2017 19:01 - CONCLUSION: 1. Minimal atherosclerotic disease bilaterally. No significant stenosis is identified within either internal carotid artery (less than 50%% stenosis). 2. There is good flow within both vertebral arteries. León Ramirez MD Brain MRI 06/08/17 0000 Signed Impressions: Service Date/Time: Thursday, June 08, 2017 17:14 - CONCLUSION: 1. Old lacunar type infarct in the anterior right ma radiata with possible punctate lacunar type infarct versus perivascular space in the left basal ganglia. 2. Minimal periventricular small vessel ischemic demyelination. 3. Nothing acute. Too Villarreal MD Objective Remarks GENERAL: Alert, NAD. SKIN: Warm and dry. HEAD: Normocephalic. EYES: No scleral icterus. No injection or drainage. NECK: Supple, trachea midline. No JVD or lymphadenopathy. CARDIOVASCULAR: Regular rate and rhythm without murmurs, gallops, or rubs. RESPIRATORY: Breath sounds equal bilaterally. No accessory muscle use. GASTROINTESTINAL: Abdomen soft, non-tender, nondistended. MUSCULOSKELETAL: No cyanosis, or edema. Right upper extremity 4 out of 5, left upper extremity 5 out of 5, 5 out of 5 on lower extremities. BACK: Nontender without obvious deformity. No CVA tenderness. Procedures none A/P Problem List: (1) Generalized weakness ICD Code: R53.1 - Weakness Assessment and Plan Ms. Lee is a pleasant 72-year-old female with a history of hypertension, obstructive sleep apnea, hyperlipidemia who was brought to the hospital due to 3 -4 week history of progressive weakness and fatigue. She also had some confusion and slurred speech. No focal deficits although patient has a history of dystonia. - Generalized weakness likely secondary to medications specially Klonopin which was recently increased to twice a day. Improved since holding Klonopin and baclofen - Does not appear to be acute CVA but imaging study showed prior infarct. Continue aspirin - Physical therapy consulted no PT recommended. - Mild hypokalemia - We'll replace with oral potassium. - Essential tremor - continue primidone 300 mg daily at bedtime - Depression - continue bupropion and venlafaxine Full code. Ambulation. Discharge Planning Stable for discharge pending echocardiogram and EEG Aaron Beck MD Jun 10, 2017 11:20
--- NOTE | 2017-06-10 15:53 | MG ---
cc: MEE NORIEGA M.D. Lab No: Date: 06/10/2017 Age: Sex: F Race: TEST NUMBER [id number] TECHNIQUE A 17 channel EEG. DESCRIPTION The background rhythm reveals a symmetrical alpha rhythm with a frequency of 8 Hz. Amplitude is roughly 20 microvolts. There is frequent beta activity probably related to medication effect. There is also muscle artifact. No epileptiform discharges are present and no lateralizing features are seen. Photic stimulation results in a fairly well developed driving response. INTERPRETATION Normal EEG. MD LIZBETH Olvera/AFTAB /3:45 PM /3:51 PM
[2017-06-10] MEDS ORDERED: ASPI1TAB56 PO (16:48)
--- NOTE | 2017-06-10 16:51 | HHI.DS ---
Discharge Summary Admission Date Jun 08, 2017 at 17:09 Discharge Date: Jun 10, 2017 Admitting Diagnosis subactue CVA, aphasia (1) Generalized weakness ICD Code: R53.1 - Weakness Diagnosis: Principal Procedures none Brief History - From Admission 72-year-old female with a past medical history significant for dystonia for which she receives Botox injections, essential tremor, hypertension, hyperlipidemia and obstructive sleep apnea presents to the emergency department with a 3-4 week history of progressive weakness and fatigue with accompanying slurred speech and confusion that waxes and wanes. Per the patient's , the patient's speech has been abnormal and progressively worsening. She also is intermittently confused and does not remember recent conversations. These are all new symptoms for her. Additionally, the patient has been extremely fatigued not wanting to leave her chair during the day. She is normally a very active person. The patient's states that he is afraid to let her drive because of her confusion and weakness. CT of the head showed possible subacute left basal ganglia lacunar infarct. MRI was significant for an old lacunar infarct. Lab values remarkable only for a potassium of 3.3. Remainder of CBC/ CMP within normal limits.. Patient complains of a headache at this time. Denies chest pain/shortness of breath. The patient and her are visiting from [place]. She has no history of a CVA/TIA. Of note, the patient states that she has a history of atrial fibrillation and states she takes a combined anticoagulant medication. She is unclear of the name of this medication and it does not appear on her medication reconciliation. CBC/BMP: 06/08/17 1540 06/09/17 0600 Significant Findings Laboratory Tests Test 06/08/17 15:40 06/09/17 06:00 06/10/17 07:42 Red Blood Count 3.99 MIL/MM3 (4.00-5.30) Blood Urea Nitrogen 6 MG/DL (7-18) 6 MG/DL (7-18) Potassium Level 3.3 MEQ/L (3.5-5.1) 3.3 MEQ/L (3.5-5.1) Estimat Glomerular Filtration Rate 88 ML/MIN (>89) Troponin I LESS THAN 0.02 NG/ML Creatinine 0.47 MG/DL (0.50-1.00) HDL Cholesterol 71.5 MG/DL (40.0-60.0) Erythrocyte Sedimentation Rate 31 mm/hr (0-30) C-Reactive Protein 2.74 MG/DL (0.00-0.30) Imaging Last Impressions Head CT 06/08/17 1345 Signed Impressions: Service Date/Time: Thursday, June 08, 2017 14:05 - CONCLUSION: 1. Old appearing bilateral basal ganglia lacunar infarcts, although the left basal ganglia lacunar infarct could be subacute. If concern for acute infarct and MRI may be warranted. 2. Nonspecific white matter changes. Ramu Pearson MD Chest X-Ray 06/08/17 1345 Signed Impressions: Service Date/Time: Thursday, June 08, 2017 14:04 - CONCLUSION: No acute disease. Hiatal hernia. Ramu Pearson MD Carotid Artery Ultrasound 06/08/17 0000 Signed Impressions: Service Date/Time: Thursday, June 08, 2017 19:01 - CONCLUSION: 1. Minimal atherosclerotic disease bilaterally. No significant stenosis is identified within either internal carotid artery (less than 50%% stenosis). 2. There is good flow within both vertebral arteries. León Ramirez MD Brain MRI 06/08/17 0000 Signed Impressions: Service Date/Time: Thursday, June 08, 2017 17:14 - CONCLUSION: 1. Old lacunar type infarct in the anterior right ma radiata with possible punctate lacunar type infarct versus perivascular space in the left basal ganglia. 2. Minimal periventricular small vessel ischemic demyelination. 3. Nothing acute. Too Villarreal MD PE at Discharge GENERAL: Alert, NAD. SKIN: Warm and dry. HEAD: Normocephalic. EYES: No scleral icterus. No injection or drainage. NECK: Supple, trachea midline. No JVD or lymphadenopathy. CARDIOVASCULAR: Regular rate and rhythm without murmurs, gallops, or rubs. RESPIRATORY: Breath sounds equal bilaterally. No accessory muscle use. GASTROINTESTINAL: Abdomen soft, non-tender, nondistended. MUSCULOSKELETAL: No cyanosis, or edema. Right upper extremity 4 out of 5, left upper extremity 5 out of 5, 5 out of 5 on lower extremities. BACK: Nontender without obvious deformity. No CVA tenderness. Hospital Course Ms. Lee is a pleasant 72-year-old female with a history of hypertension, obstructive sleep apnea, hyperlipidemia who was brought to the hospital due to 3 -4 week history of progressive weakness and fatigue. She also had some confusion and slurred speech. No focal deficits although patient has a history of dystonia. - Generalized weakness likely secondary to medications specially Klonopin which was recently increased to twice a day. Improved since holding Klonopin and baclofen - Does not appear to be acute CVA but imaging study showed prior infarct. Continue aspirin. ECHO and EEg unremarkable - Physical therapy consulted no PT recommended. - Mild hypokalemia - We'll replace with oral potassium. - Essential tremor - continue primidone 300 mg daily at bedtime - Depression - continue bupropion and venlafaxine Full code. Ambulation. Stable for discharge pending EEG and echocardiogram Pt Condition on Discharge: Stable Discharge Disposition: Discharge Home Discharge Time: > 30 minutes Discharge Instructions DIET: Follow Instructions for: Heart Healthy Diet Activities you can perform: Regular-No Restrictions Follow up Referrals: Neurology - 1 Week PCP Follow-up - 1 Week New Medications: Aspirin DR (Adult Aspirin EC Low Strength) 81 Mg Tabec 81 MG PO DAILY for Prevent Blood Clot, #30 TAB Continued Medications: Bupropion HCl ER 24 HR (Wellbutrin Xl 24 HR) 150 Mg Tab 150 MG PO DAILY for Control Depression, TAB 0 Refills Clonazepam (Klonopin) 1 Mg Tab 1 MG PO HS for Insomnia, #60 TAB 0 Refills Omeprazole (Omeprazole) 20 Mg Tab 20 MG PO BID for Reflux, #30 TAB 0 Refills Primidone (Primidone) 50 Mg Tab 300 MG PO DAILY IN THE PM for Control Seizures, #60 TAB 0 Refills Solifenacin (Vesicare) 10 Mg Tab 10 MG PO DAILY for Urinary Symptom Managemen, #30 TAB 0 Refills Venlafaxine (Effexor) 75 Mg Tab 75 MG PO TID for Depression Control, #90 TAB 0 Refills [Easy Fe 200MG] () 200 MG PO DAILY for Nutritional Supplement Discontinued Medications: Baclofen (Baclofen) 10 Mg Tab 10 MG PO Q8HR, TAB 0 Refills Ciprofloxacin (Cipro) 500 Mg Tab 500 MG PO BID for Infection for 5 Days, #10 TAB 0 Refills Abando,Andrew MD Jun 10, 2017 16:51
--- NOTE | 2017-06-10 18:55 | ECHRPT ---
Indication: CVA/TIA CONCLUSIONS Normal left ventricular size. Wall thickness is normal. The left ventricular systolic function is normal, EF 60%.. The right ventricle is mildly dilated. There is trace tricuspid valve regurgitation. The estimated pulmonary arterial pressure is 36 mmHg. BP: 177 / 73 HR: Rhythm: Sinus MEASUREMENTS (Male / Female) Normal Values Technical Quality:Fair 2D ECHO LV Diastolic Diameter PLAX 4.1 cm 4.2 - 5.9 / 3.9 - 5.3 cm LV Systolic Diameter PLAX 2.7 cm IVS Diastolic Thickness 1.0 cm 0.6 - 1.0 / 0.6 - 0.9 cm LVPW Diastolic Thickness 1.0 cm 0.6 - 1.0 / 0.6 - 0.9 cm LV Relative Wall Thickness 0.5 LVOT Diameter 1.9 cm Aortic Root Diameter 2.8 cm LA Systolic Diameter LX 2.7 cm 3.0 - 4.0 / 2.7 - 3.8 cm M-MODE AV Cusp Separation MM 1.9 cm DOPPLER AV Peak Velocity 153.0 cm/s AV Peak Gradient 9.4 mmHg AV Mean Gradient 5.0 mmHg AV Velocity Time Integral 27.1 cm LVOT Peak Velocity 83.5 cm/s LVOT Peak Gradient 2.8 mmHg LVOT Velocity Time Integral 14.1 cm AV Area Cont Eq vti 1.5 cm AV Area Cont Eq pk 1.5 cm Mitral E Point Velocity 64.2 cm/s Mitral A Point Velocity 91.3 cm/s Mitral E to A Ratio 0.7 LV E' Lateral Velocity 8.1 cm/s Mitral E to LV E' Lateral Ratio 7.9 LV E' Septal Velocity 5.0 cm/s Mitral E to LV E' Septal Ratio 12.9 TR Peak Velocity 257.0 cm/s TR Peak Gradient 26.4 mmHg Right Atrial Pressure 10.0 mmHg Pulmonary Artery Systolic Pressu 36.4 mmHg Right Ventricular Systolic Press 36.4 mmHg PV Peak Velocity 70.7 cm/s PV Peak Gradient 2.0 mmHg FINDINGS LEFT VENTRICLE Normal left ventricular size. Wall thickness is normal. The left ventricular systolic function is normal, EF 60%.. RIGHT VENTRICLE The right ventricle is mildly dilated. LEFT ATRIUM The left atrial size is normal. RIGHT ATRIUM The right atrial size is normal. ATRIAL SEPTUM Normal atrial septal thickness without atrial level shunting by limited color doppler interrogation. AORTA The aortic root and proximal ascending aorta are normal in size on limited imaging. MITRAL VALVE Structurally normal mitral valve. No mitral valve stenosis or regurgitation. AORTIC VALVE Trileaflet aortic valve. No aortic valve stenosis or regurgitation. TRICUSPID VALVE There is trace tricuspid valve regurgitation. The estimated pulmonary arterial pressure is 36.4 mmHg. PULMONARY VALVE No pulmonary valve regurgitation or stenosis. VESSELS The inferior vena cava is normal in size. PERICARDIUM No pericardial effusion. Tien Rolon MD, FACC (Electronically Signed) Final Date:10 June 2017 18:54
== END 2017-06-10 20:21 | disposition home or self-care (01) ==
LOC: NEPC 13:29 → NEDA 17:09 → NEPGCP 17:57
PROVIDERS: ADMIT Internal Medicine; ATTEND Internal Medicine
DX: I63.9 Cerebral infarction, unspecified (principal); R47.1 Dysarthria and anarthria; Z79.899 Other long term (current) drug therapy; K44.9 Diaphragmatic hernia without obstruction or gangrene; R47.01 Aphasia; G47.33 Obstructive sleep apnea (adult) (pediatric); I10 Essential (primary) hypertension; G25.0 Essential tremor; R06.02 Shortness of breath; E78.5 Hyperlipidemia, unspecified; Z86.73 Personal history of transient ischemic attack (TIA), and cerebral infarction without residual deficits; I48.91 Unspecified atrial fibrillation; F41.9 Anxiety disorder, unspecified; F32.9 Major depressive disorder, single episode, unspecified; G24.5 Blepharospasm; E87.6 Hypokalemia
CPT/HCPCS: 70450; 70551; 71010; 80048; 80053; 80061; 82140; 82550; 82607; 83036; 83735; 83880; 84443; 84484; 85025; 85610; 85652; 85730; 86140; 93005; 93306; 93880; 95819; 96361; 96365; 96366; 96372; 97163; 99285; G0378; G8987; G8988; J1644; J3480; J7030